=== PATIENT | female | born 1995 | race Caucasian/White ===

== ENCOUNTER 2017-02-19 23:29 | Emergency (ER) | payer OTHER ==
[~2017-02-19] VITALS: Ht 162.6 cm; Wt 47.6 kg
[~2017-02-19 23:29] MED LIST: IBUPROFEN800 MG PO; VICODIN5-300 PO
--- NOTE | 2017-02-20 00:26 | ED GENERAL ADULT ---
History of Present Illness General Chief Complaint: Dyspnea (COPD, CHF, Other) Stated Complaint: DIFF BREATHING Source: patient Exam Limitations: no limitations Vital Signs & Intake/Output Vital Signs & Intake/Output Vital Signs Date Time Temp Pulse Resp B/P B/P Pulse O2 O2 Flow FiO2 Mean Ox Delivery Rate 02/20 0136 97.9 85 18 118/69 100 Room Air 07/ 0113 100 07/ 0030 97 Room Air / 0013 98.5 95 18 130/72 100 Room Air Reconcile Medications No Known Home Medications Triage Note: TRIAGE: PATIENT TO ER FROM HOME REPORTING +SOB, INC W/ EXERTION SINCE APPROX 7:30PM JUANJOSE, DENIES HX ASTHMA. REPORTS "HAD JUST FINISHED DINNER AND I WAS LEAVING IT STARTED." LUNGS CTA, R UPPER SLIGHTLY DIMINISHED. NO WHEEZING NOTED. Triage Nurses Notes Reviewed? yes Onset: Gradual Duration: hour(s): (5) Timing: remote history Injury Environment: home Severity: moderate Severity Numbers: 7 No Modifying Factors: none : No Patient currently breastfeeds: No HPI: Patient is a 21-year-old female with no past medical history presenting to the emergency department with chief complaint of shortness of breath and diffuse chest pressure that is worse with exertion. Started after dinner this evening around 7:30 and has been constant. Denies taking anything to help with symptoms. Denies any nausea or vomiting. Denies history of asthma. No recent illness. She was walking around [facility] [place] all day long and symptoms started and then came home. No family history of any significant cardiac issues. Patient does not take any daily medications. Remote history of similar symptoms in the past that resolved on their own. Denies any palpitations. No abdominal pain. Any recent travel. Reports that she was drinking 4 bottles of water throughout the day today. (MELLO TRENT,JUNI) Allergies Coded Allergies: lactose (Intermediate, LACTOSE INTOLERANT 02/20/17) milk (Intermediate, LACTOSE INTOLERANT 02/20/17) (ELKE VENTURA,RUFUS) Past History Travel History Traveled to [place] past 21 day No Medical History Any Pertinent Medical History? see below for history Neurological: SYNCOPAL EPISODES EENT: NONE Cardiovascular: NONE Respiratory: NONE Gastrointestinal: NONE Hepatic: NONE Renal: NONE Musculoskeletal: NONE Psychiatric: NONE Endocrine: NONE Blood Disorders: NONE Cancer(s): NONE AD COMPOSITOR/Reproductive: NONE Surgical History Surgical History: WISDOM TEETH REMOVAL Psychosocial History What is your primary language Cypriot Tobacco Use: Never used Family History Hx Contributory? No (JUNI SARAVIA) Review of Systems Review of Systems Constitutional: Reports: no symptoms. Comments Review of systems: See HPI, All other systems negative. Constitutional, no chills fever or weight loss HEENT: No visual changes no sore throat no congestion Cardiovascular: No orthopnea or ankle swelling Skin, no jaundice no rashes Respiratory: No COUGH sputum or hemoptysis GI: No nausea no vomiting : No dysuria No hematuria Muscle skeletal: no back pain, no neck pain, Neurologic: No numbness no confusion NO SOSA Psych: No INCREASED stress anxiety or depression,. Heme/endocrine: No bruising no bleeding no polyuria or polydipsia Immunology: No splenectomy or history of AIDS (JUNI SARVAIA) Physical Exam Physical Exam General Appearance: well developed/nourished, no apparent distress, alert, awake , comfortable Comments: Well-developed well-nourished person in no acute distress, APPEARS ANXIOUS HEENT: extraocular motion intact, no nystagmus. Pupils equally round and reactive to light and accommodation. Nose is atraumatic. External auditory canal and Tympanic membranes clear. Pharynx normal. No swelling or edema. Neck: Supple, no lymphadenopathy, normal range of motion without pain or tenderness Back: Nontender, no CVA tenderness. Full range of motion Cardiovascular: Regular rate and rhythms no murmurs rubs or gallops, normal JVP Respiratory: Chest nontender. No respiratory distress.breath sounds clear to auscultation bilaterally Abdomen: Soft, nontender nondistended, no appreciable organomegaly. Normal bowel sounds. No ascites Extremity: No edema, no calf tenderness to palpation, normal and equal pulses. Neuro: Alert oriented x3 Skin: Dry maculopapular rash noted over the upper and lower extremities. Psych: ANXIOUS, memory and judgment is normal. Core Measures ACS in differential dx? Yes CVA/TIA Diagnosis: No Severe Sepsis Present: No Septic Shock Present: No (JUNI SARAVIA) Progress Differential Diagnoses I considered the following diagnoses in my evaluation of the patient: Pulmonary embolism, generalized anxiety disorder, pneumonia, bronchitis, dehydration, electrolyte abnormality, pericarditis Diagnostic Imaging: Viewed by Me: Radiology Read. Discussed w/RAD: Radiology Read. Initial ED EKG: NSR Hand-Off Endorsed To: RUFUS LEONARD MD Endorsed Time: 52 Pending: labs, Xray Comments: patient medicated with breathing treatment, by mouth ibuprofen. Patient is PERC negative. Patient will be signed out to Dr. Leonard pending lab work resulted in resolution of symptoms. (MELLO TRENT,JUNI) Differential Diagnoses I considered the following diagnoses in my evaluation of the patient: Plan of Care: Orders Procedure Date/time Status XRY-CHEST XRAY, PA AND LATERAL 02/20 25 Active Telemetry/Fiber Optics Engineer 02/20 25 Active URINE 02/20 25 Active URINE DRUG SCREEN FOR ER ONLY 02/20 25 Active URINALYSIS 02/20 25 Active TROPONIN LEVEL 02/20 25 Active COMPREHENSIVE METABOLIC PANEL 02/20 25 Active CBC WITHOUT DIFFERENTIAL 02/20 25 Active EKG 02/20 25 Active Current Medications Sig/Mindi Start time Last Medication Dose Stop Time Status Admin Albuterol Sulfate 3 ML ONCE ONE 02/20 45 UNVr (Proventil) 02/20 46 Ibuprofen 600 MG ONCE ONE 02/20 45 UNVr (Motrin) 02/20 46 Ipratropium [place] 2.5 ML ONCE ONE 02/20 45 UNVr (Atrovent) 02/20 46 Laboratory Tests 02/20/17 0040: Sodium Pending, Potassium Pending, Chloride Pending, Carbon Dioxide Pending, Anion Gap Pending, BUN Pending, Creatinine Pending, BUN/Creatinine Ratio Pending , Glucose Pending, Calcium Pending, Total Bilirubin Pending, AST Pending, ALT Pending, Alkaline Phosphatase Pending, Troponin I Pending, Total Protein Pending , Albumin Pending, Globulin Pending, Albumin/Globulin Ratio Pending, CBC w Diff Pending, WBC Pending, RBC Pending, Hgb Pending, Hct Pending, MCV Pending, MCH Pending, RDW Pending, Plt Count Pending, MPV Pending, PUBS MCHC Pending 1:51 AM RESULTS D/W PATIENT AND FAMILY. CXR WNL, TROPONIN NEGATIVE. LUNGS ARE CTA B/L, [id number] NO MURMURS. WILL FOLLOW UP WITH MOTHER'S PCP. TOLD TO RETURN IF WORSE. (RUFUS LEONARD MD) CXR Impression: PATIENT: KRISTEN MCCRAY PRESENT AGE: 21 PATIENT ACCOUNT NO: [id number] : 97 LOCATION: [facility], [place] ORDERING PHYSICIAN: JUNI TRENT SERVICE DATE: 02/20/17 EXAM TYPE: RAD - XRY-CHEST XRAY, PA AND LATERAL EXAMINATION: XR CHEST CLINICAL INFORMATION: Shortness of breath COMPARISON: None TECHNIQUE: 2 views of the chest were obtained. FINDINGS: No significant abnormality is noted involving the heart, lungs, mediastinum, bony thorax or soft tissues. IMPRESSION: Unremarkable examination. DICTATED BY: ELY TURPIN MD DATE/TIME DICTATED:02/20/17127 SHELL PLATER:NIDIA DATE/TIME TRANSCRIBED:02/20/17127 CONFIDENTIAL, DO NOT COPY WITHOUT APPROPRIATE AUTHORIZATION. <Electronically signed in Other Vendor System> SIGNED BY: ELY TURPIN MD 02/20/17 0132 (RUFUS LEONARD MD) Departure Departure Condition: Stable Clinical Impression Primary Impression: Dyspnea Qualifiers: Dyspnea type: unspecified Qualified Code: R06.00 - Dyspnea, unspecified Referrals: KERWIN CASEY MD (PCP/Family) Departure Forms: Customer Survey General Discharge Information Prescriptions: Current Visit Scripts No Known Home Medications (JUNI SARAVIA) Departure Time of Disposition: 150 Disposition: HOME OR SELF CARE Additional Instructions: Please follow-up in the office with your family's primary care doctor regarding her symptoms. Return immediately to the ER for any changing or worsening symptoms. PA/JOINT CUTTER Co-Sign Statement Statement: ED Attending supervision documentation- [] I saw and evaluated the patient. I have also reviewed all the pertinent lab results and diagnostic results. I agree with the findings and the plan of care as documented in the PA's/JOINT CUTTER's documentation. [X] I have reviewed the ED Record and agree with the PA's/JOINT CUTTER's documentation. [] Additions or exceptions (if any) to the PAs/JOINT CUTTER's note and plan are summarized below: [] (RUFUS LEONARD MD) Critical Care Note Critical Care Note Critical Care Time: non-applicable (JUNI SARAVIA)
[2017-02-20 00:57] LABS: ABSOLUTE BASOPHIL COUNT 0 /CUMM (0.0-0.2); ABSOLUTE EOSINOPHIL COUNT 0.2 /CUMM (0.0-0.7); ABSOLUTE GRANULOCYTE CT 8.6 /CUMM (1.4-6.5); ABSOLUTE LYMPH COUNT 3.1 /CUMM (1.2-3.4); ABSOLUTE MONOCYTE COUNT 0.7 /CUMM (0.10-0.60); BASOPHIL % 0.3 % (0.0-2.0); EOSINOPHIL % 1.7 % (0-5); GRANULOCYTE % 67.7 % (42.2-75.2); HEMATOCRIT 30.9 % (37-47); MEAN CORPUSCULAR HGB 22.7 PG (27.0-31.0); MEAN CORPUSCULAR HGB CONC 32.5 G/DL (33.0-37.0); MEAN CORPUSCULAR VOLUME 69.9 FL (81.0-99.0); MEAN PLATELET VOLUME 8.6 FL (7.4-10.4); PLATELET COUNT 332 /CUMM (130-400); RED BLOOD CELL CT 4.42 /CUMM (4.20-5.40); WHITE BLOOD CELL COUNT 12.7 /CUMM (4.8-10.8)
--- NOTE | 2017-02-20 01:32 | RADIOLOGY REPORT ---
EXAMINATION: XR CHEST CLINICAL INFORMATION: Shortness of breath COMPARISON: None TECHNIQUE: 2 views of the chest were obtained. FINDINGS: No significant abnormality is noted involving the heart, lungs, mediastinum, bony thorax or soft tissues. IMPRESSION: Unremarkable examination.
[2017-02-20 01:36] VITALS: BP 118/69
== END 2017-02-20 02:04 ==
LOC: ERH 23:29
PROVIDERS: Physician Assistant
DX: R06.00 Dyspnea, unspecified (principal); R07.89 Other chest pain
CPT/HCPCS: 1263; 1395; 80307; 81001; 81025; 93005; 93010